=== PATIENT | male | born 1985 | race Caucasian/White ===

== ENCOUNTER 2017-02-09 03:31 | Emergency (ER) | payer BC ==
[~2017-02-09] VITALS: Ht 187.9 cm; Wt 81.6 kg
[2017-02-09 03:55] LABS: BASO % 0.3 % (0.0-1.0); EOS % 0.1 % (1.0-4.0); HEMATOCRIT 43.4 % (42.0-52.0); LYMPH # 2.3 10*3/uL (1.3-4.4); LYMPH % 21.6 % (27.0-41.0); MEAN CELL VOLUME 92.3 fl (80.0-94.0); MEAN CORPUSCULAR HGB 31.9 pg (27.0-31.0); MEAN CORPUSCULAR HGB CONC 34.6 g/dl (33.0-37.0); MEAN PLATELET VOLUME 10.2 fl (9.6-12.3); MONO # 0.5 10*3/uL (0.1-1.0); MONO % 4.8 % (3.0-9.0); NEUT # 7.8 10*3/uL (2.3-7.9); NEUT % 72.8 % (47.0-73.0); PLATELET COUNT AUTOMATED 242 10*3/uL (130-400); WHITE BLOOD COUNT 10.6 10*3/uL (4.8-10.8)
[2017-02-09 04:07] LABS: ACT PARTIAL THROMBO TIME 26.3 SECONDS (20.8-31.5); INTERNATIONAL NORM RATIO 1.1 (2.0-3.5)
[2017-02-09 04:17] LABS: ALBUMIN 4.3 gm/dl (3.1-4.5); ALKALINE PHOSPHATASE 87 U/L (45-117); BUN 13 mg/dl (7-24); CHLORIDE 103 mmol/L (98-107); CREATININE 0.92 mg/dL (0.70-1.30); POTASSIUM 4.1 mmol/L (3.5-5.1); SGOT/AST 24 IU/L (3-35); SGPT/ALT 23 U/L (12-78); SODIUM 137 mmol/L (136-145); TOTAL PROTEIN 7.8 gm/dL (6.4-8.2)
[2017-02-09 04:26] LABS: TROPONIN I < 0.015 ng/ml (<0.045)
[2017-02-09] MEDS ORDERED: KETOROLAC10 MG PO (05:57)
== END 2017-02-09 06:13 | disposition home or self-care (01) ==
LOC: ED 03:31 → EDBD 03:33 → ED 03:33
PROVIDERS: Emergency Medicine Emergency Medical Services
DX: R07.89 Other chest pain (principal); F17.200 Nicotine dependence, unspecified, uncomplicated